=== PATIENT | male | born 1945 | race Caucasian/White ===

== ENCOUNTER 2021-12-19 13:56 | Emergency (ER) | payer OTHER ==
[~2021-12-19] VITALS: Ht 175.3 cm; Wt 98.9 kg
[2021-12-19] MEDS ORDERED: ATIVAN1 MG PO (14:14)
[2021-12-19] MEDS ORDERED: ASPIRIN81 MG PO (14:14)
[2021-12-19] MEDS ORDERED: ATORVASTATIN CA40 MG PO (14:15)
[2021-12-19] MEDS ORDERED: FLOMAX0.4 MG PO (14:16)
[2021-12-19] MEDS ORDERED: ZESTRIL5 MG PO (14:16)
--- NOTE | 2021-12-19 16:55 | EKG ---
[facility] [address] [facility] [place] [address] Signed Sinus rhythm with 2nd degree AV block (Mobitz I) Left axis deviation Right bundle branch block Abnormal ECG Confirmed by LUPE GOMEZ MD ([id number]) on 12/19/2021 4:55:36 PM Electronically Signed By: LUPE GOMEZ MD 12/19/21 1655 PATIENT NAME: PURVISONIA Electrocardiogram DATE OF : 49 PHYSICIAN: LUPE GOMEZ MD REPORT #: [id number] REPORT IS CONFIDENTIAL AND NOT TO BE RELEASED WITHOUT AUTHORIZATION
== END 2021-12-19 17:53 | disposition short-term general hospital (02) ==
LOC: ED 13:56
DX: I44.2 Atrioventricular block, complete (principal); R00.0 Tachycardia, unspecified; I10 Essential (primary) hypertension; E78.5 Hyperlipidemia, unspecified; I25.2 Old myocardial infarction; Z79.899 Other long term (current) drug therapy; Z79.82 Long term (current) use of aspirin; Z20.822 Contact with and (suspected) exposure to COVID-19
CPT/HCPCS: 36415; 71045; 80053; 83735; 84484; 85025; 93005; 93010; 99285-25; C9803; U0003